=== PATIENT | male | born 1985 | race Caucasian/White ===

== ENCOUNTER 2020-02-22 11:27 | Inpatient (IN) | payer OTHER ==
[~2020-02-22] VITALS: Ht 182.9 cm; Wt 75.2 kg
[2020-02-22] MEDS ORDERED: SODIUM CHLORIDE 0.9% 1,000 ML IV ONE (13:06)
[2020-02-22] MEDS ORDERED: ONDANSETRON HCL 4 MG/2 ML VIAL IVP ONE (13:15)
[2020-02-22 13:28] LABS: ANION GAP 6 mmol/L (8-16); CALCIUM, TOTAL 9.4 mg/dL (8.8-10.5); CARBON DIOXIDE 29 mmol/L (22-29); CHLORIDE 102 mmol/L (98-107); CREATININE 0.82 mg/dL (0.60-1.30); GLOMERULAR FILTR. RATE CALC > 60 mL/min (>60); GLUCOSE,RANDOM 102 mg/dL (70-110); POTASSIUM 3.8 mmol/L (3.5-5.1); SODIUM SERUM 137 mmol/L (136-145); UREA NITROGEN, BLOOD 12 mg/dL (7-18)
[2020-02-22 13:32] LABS: BASOPHILS % (AUTO) 0.3 % (0.0-2.0); EOSINOPHILS % (AUTO) 0.2 % (1.0-6.0); HEMATOCRIT 42.7 % (41-53); HEMOGLOBIN 14.5 g/dL (13.5-17.5); LYMPHOCYTES # (AUTO) 1.4 K/uL (1.0-4.8); LYMPHOCYTES % (AUTO) 17.9 % (22.0-44.0); MEAN CORPUSCULAR HEMOGLOBIN 27.7 pg (26.0-34.0); MEAN CORPUSCULAR HGB CONC 34.1 G/dL (31.0-37.0); MEAN CORPUSCULAR VOLUME 81 fL (80-100); MONOCYTES # (AUTO) 0.5 K/uL (0.1-1.0); MONOCYTES % (AUTO) 6.1 % (2.0-9.0); NEUTROPHILS # (AUTO) 5.9 K/uL (1.8-7.7); NEUTROPHILS % (AUTO) 75.5 % (40.0-70.0); PLATELET COUNT (AUTO) 199 K/uL (150-450); RED BLOOD CELL COUNT(AUTO) 5.25 MIL/uL (4.50-5.90); RED CELL DISTRIBUTION WIDTH 13.4 % (11.5-14.5)
[2020-02-22 13:34] LABS: ALANINE AMINOTRANSFERASE 22 U/L (12-78); ALBUMIN 3.8 g/dL (3.4-5.0); ALKALINE PHOSPHATASE 60 U/L (46-116); ASPARTATE AMINOTRANSFERASE 19 U/L (15-37); BILIRUBIN,TOTAL 0.9 mg/dL (0.1-1.0); TOTAL PROTEIN, SERUM 6.9 g/dL (6.4-8.2)
[2020-02-22] MEDS ORDERED: 0.9% SODIUM CHLORIDE 10 ML SYRINGE IVP PRN (14:30)
[2020-02-22] MEDS ORDERED: ONDANSETRON HCL 4 MG/2 ML VIAL IVP PRN (14:30)
[2020-02-22] MEDS ORDERED: ACETAMINOPHEN 325 MG TABLET PO PRN (14:30)
[2020-02-22] MEDS ORDERED: ACETAMINOPHEN 500 MG TABLET ONE (15:00)
[2020-02-22] MEDS ORDERED: ACETAMINOPHEN 500 MG TABLET PO ONE (15:00)
[2020-02-22 15:59] LABS: COVID AG,FIA SOURCE NASOPHARYNGEAL
[2020-02-22] MEDS ORDERED: HydrOXYzine PAMOATE 50 MG CAPSULE PO PRN ×2 (16:15)
[2020-02-22] MEDS ORDERED: IBUPROFEN 600 MG TABLET PO PRN ×2 (16:15)
[2020-02-22] MEDS ORDERED: BACLOFEN 10 MG TABLET PO PRN (16:15)
[2020-02-22] MEDS ORDERED: LOPERAMIDE HCL 2 MG/15 ML SUSPENSION UDCUP PO PRN (16:15)
[2020-02-22] MEDS ORDERED: CloNIDine HCL 0.1 MG TABLET PO PRN (16:15)
[2020-02-22] MEDS ORDERED: MAG HYDROX/AL HYDROX/SIMETH ES 30 ML SUSPENSION UDCUP PO PRN ×2 (16:15)
[2020-02-22] MEDS ORDERED: DICYCLOMINE HCL 10 MG CAPSULE PO PRN (16:15)
[2020-02-22] MEDS ORDERED: SODIUM CHLORIDE 0.45% 1,000 ML IV ONE (17:07)
[2020-02-22] MEDS ORDERED: CloNIDine HCL 0.1 MG TABLET ONE (17:08)
[2020-02-22] MEDS: CloNIDine HCL 0.1 MG TABLET PO SCH ×2 (17:18→21:44)
[2020-02-22] MEDS: SODIUM CHLORIDE 0.45% 1,000 ML IV SCH (17:19)
[2020-02-22 18:31] VITALS: BP 130/73
[2020-02-22 20:58] VITALS: BP 129/62
[2020-02-22] MEDS: PROMETHAZINE HCL 25 MG TABLET PO PRN (22:15)
[2020-02-23] MEDS: PROMETHAZINE HCL 25 MG TABLET PO PRN ×2 (04:20→17:22)
[2020-02-23 04:44] VITALS: BP 121/65
[2020-02-23] MEDS: CloNIDine HCL 0.1 MG TABLET PO SCH ×4 (05:31→20:38)
[2020-02-23] MEDS: LORazepam 1 MG TABLET PO PRN ×2 (07:39→17:24)
[2020-02-23 08:09] VITALS: BP 118/68
[2020-02-23] MEDS: ACETAMINOPHEN 325 MG TABLET PO PRN ×2 (08:39→20:51)
[2020-02-23] MEDS: SODIUM CHLORIDE 0.45% 1,000 ML IV SCH ×2 (08:39→21:01)
[2020-02-23] MEDS ORDERED: PYRIDOSTIGMINE BROMIDE 60 MG TABLET PO ONE (11:00)
[2020-02-23] MEDS: ONDANSETRON HCL 4 MG/2 ML VIAL IVP PRN ×3 (11:01→20:51)
[2020-02-23 14:30] VITALS: BP 110/67
[2020-02-23 16:41] VITALS: BP 116/79
[2020-02-23] MEDS ORDERED: PYRIDOSTIGMINE BROMIDE 60 MG TABLET PO SCH (17:30)
[2020-02-23] MEDS: PYRIDOSTIGMINE BROMIDE 60 MG TABLET PO SCH (17:35)
[2020-02-23 20:16] VITALS: BP 116/75
[2020-02-23] MEDS: TraZODone HCL 50 MG TABLET PO PRN (21:01)
[2020-02-23] MEDS ORDERED: ALBUTEROL SULFATE 2.5 MG/0.5 ML NEB SOLUTION NEB PRN (22:45)
[2020-02-23] MEDS ORDERED: ACETAMINOPHEN 325 MG TABLET PO PRN (22:45)
[2020-02-23] MEDS ORDERED: IPRATROPIUM BROMIDE 0.5 MG/2.5 ML NEB SOLUTION NEB PRN (22:45)
[2020-02-23] MEDS ORDERED: ZOLPIDEM TARTRATE 5 MG TABLET PO PRN (22:45)
[2020-02-24] VITALS: BP 118/73
[2020-02-24] MEDS: PYRIDOSTIGMINE BROMIDE 60 MG TABLET PO SCH ×5 (00:14→23:39)
[2020-02-24] MEDS: HEPARIN SODIUM,PORCINE 5,000 UNITS/ML VIAL SQ SCH ×4 (00:14→23:38)
[2020-02-24] MEDS: PROMETHAZINE HCL 25 MG TABLET PO PRN (00:46)
[2020-02-24 04:00] VITALS: BP 112/68
[2020-02-24 05:05] LABS: APPEARANCE,URINE CLEAR (CLEAR); GLUCOSE, URINE (UA) NEGATIVE (NEGATIVE); KETONES,URINE >=80 mg/dL (NEGATIVE); LEUKOCYTE ESTERASE ,URINE SMALL (NEGATIVE); NITRATE,URINE NEGATIVE (NEGATIVE); OCCULT BLOOD,URINE TRACE (NEGATIVE); PROTEIN,URINE POS 1+ (NEGATIVE); UROBILINOGEN,URINE 0.2 mg/dL (<=1.0)
[2020-02-24 05:10] LABS: AMPHET/METH SCREEN,URINE POSITIVE (NEGATIVE); BARBITURATE SCREEN, URINE NEGATIVE (NEGATIVE); BENZODIAZEPINES SCREEN,URINE NEGATIVE (NEGATIVE); CANNABINOID SCREEN,URINE NEGATIVE (NEGATIVE); COCAINE SCREEN,URINE NEGATIVE (NEGATIVE); METHADONE SCREEN, URINE NEGATIVE (NEGATIVE); OPIATE SCREEN,URINE POSITIVE (NEGATIVE)
[2020-02-24 05:24] LABS: BILIRUBIN,URINE PRELIM. POSITIVE (NEGATIVE); PHENCYCLIDINE SCREEN,URINE NEGATIVE (NEGATIVE)
[2020-02-24 05:27] LABS: BACTERIA,URINE Moderate /HPF (None Seen); RBC,URINE 0-2 /HPF (0-2)
[2020-02-24 05:28] LABS: SQUAMOUS EPITHELIAL CELL,UR Few /LPF (None Seen)
[2020-02-24] MEDS: CloNIDine HCL 0.1 MG TABLET PO SCH ×4 (06:10→20:16)
[2020-02-24] MEDS: ONDANSETRON HCL 4 MG/2 ML VIAL IVP PRN ×4 (06:10→22:12)
[2020-02-24 08:57] LABS: HEMATOCRIT 49.1 % (41-53); HEMOGLOBIN 17.3 g/dL (13.5-17.5); MEAN CORPUSCULAR HEMOGLOBIN 28.1 pg (26.0-34.0); MEAN CORPUSCULAR HGB CONC 35.1 G/dL (31.0-37.0); MEAN CORPUSCULAR VOLUME 80 fL (80-100); NEUTROPHILS % (AUTO) 72.6 % (40.0-70.0); PLATELET COUNT (AUTO) 287 K/uL (150-450); RED BLOOD CELL COUNT(AUTO) 6.13 MIL/uL (4.50-5.90); RED CELL DISTRIBUTION WIDTH 13.8 % (11.5-14.5)
[2020-02-24 08:58] LABS: BASOPHILS % (AUTO) 0.3 % (0.0-2.0); EOSINOPHILS % (AUTO) 0 % (1.0-6.0); LYMPHOCYTES # (AUTO) 2.2 K/uL (1.0-4.8); LYMPHOCYTES % (AUTO) 18.2 % (22.0-44.0); MONOCYTES # (AUTO) 1.1 K/uL (0.1-1.0); MONOCYTES % (AUTO) 8.9 % (2.0-9.0); NEUTROPHILS # (AUTO) 8.8 K/uL (1.8-7.7)
[2020-02-24 09:00] VITALS: BP 116/65
[2020-02-24 09:16] LABS: ALANINE AMINOTRANSFERASE 22 U/L (12-78); ALBUMIN 4.4 g/dL (3.4-5.0); ALKALINE PHOSPHATASE 72 U/L (46-116); ANION GAP 8 mmol/L (8-16); ASPARTATE AMINOTRANSFERASE 17 U/L (15-37); BILIRUBIN,TOTAL 1.3 mg/dL (0.1-1.0); CALCIUM, TOTAL 10.1 mg/dL (8.8-10.5); CARBON DIOXIDE 40 mmol/L (22-29); CHLORIDE 95 mmol/L (98-107); CREATININE 1.24 mg/dL (0.60-1.30); GLOMERULAR FILTR. RATE CALC > 60 mL/min (>60); GLUCOSE,RANDOM 133 mg/dL (70-110); SODIUM SERUM 143 mmol/L (136-145); TOTAL PROTEIN, SERUM 8.2 g/dL (6.4-8.2); UREA NITROGEN, BLOOD 32 mg/dL (7-18)
[2020-02-24 09:22] LABS: POTASSIUM 2.3 mmol/L (3.5-5.1)
[2020-02-24] MEDS ORDERED: POTASSIUM CHLORIDE 20 MEQ ER TABLET PO ONE ×2 (09:45→13:45)
[2020-02-24] MEDS ORDERED: SODIUM CHLORIDE 0.9% 500 ML IV ONE (09:53)
[2020-02-24] MEDS: POTASSIUM CHL 10 MEQ/WATER 50 ML IV SCH ×4 (10:04→12:45)
[2020-02-24] MEDS: LORazepam 1 MG TABLET PO PRN (11:12)
[2020-02-24] MEDS: SODIUM CHLORIDE 0.45% 1,000 ML IV SCH (13:22)
[2020-02-24] MEDS ORDERED: POTASSIUM CHL 10 MEQ/WATER 50 ML IV PRN (14:30)
[2020-02-24] MEDS: POTASSIUM CHLORIDE 40 MEQ in SODIUM CHLORIDE 0.45% 1,000 ML IV SCH (14:35)
[2020-02-24 17:00] VITALS: BP 113/77
[2020-02-24 20:14] VITALS: BP 103/67
[2020-02-24] MEDS: POTASSIUM CHLORIDE 20 MEQ ER TABLET PO PRN (22:12)
[2020-02-24 23:31] VITALS: BP 105/71
[2020-02-25] MEDS: POTASSIUM CHLORIDE 40 MEQ in SODIUM CHLORIDE 0.45% 1,000 ML IV SCH ×2 (03:44→17:11)
[2020-02-25] MEDS: CloNIDine HCL 0.1 MG TABLET PO SCH ×5 (05:12→22:05)
[2020-02-25] MEDS: PYRIDOSTIGMINE BROMIDE 60 MG TABLET PO SCH ×5 (05:52→23:47)
[2020-02-25 05:57] VITALS: BP 101/65
[2020-02-25 07:07] LABS: BASOPHILS % (AUTO) 0.4 % (0.0-2.0); EOSINOPHILS % (AUTO) 0.4 % (1.0-6.0); HEMATOCRIT 48.5 % (41-53); LYMPHOCYTES # (AUTO) 2.8 K/uL (1.0-4.8); LYMPHOCYTES % (AUTO) 25.3 % (22.0-44.0); MEAN CORPUSCULAR HEMOGLOBIN 28.5 pg (26.0-34.0); MEAN CORPUSCULAR VOLUME 82 fL (80-100); MONOCYTES # (AUTO) 1.2 K/uL (0.1-1.0); MONOCYTES % (AUTO) 11.1 % (2.0-9.0); NEUTROPHILS # (AUTO) 6.9 K/uL (1.8-7.7); NEUTROPHILS % (AUTO) 62.8 % (40.0-70.0); PLATELET COUNT (AUTO) 260 K/uL (150-450); RED BLOOD CELL COUNT(AUTO) 5.95 MIL/uL (4.50-5.90); RED CELL DISTRIBUTION WIDTH 13.4 % (11.5-14.5)
[2020-02-25 07:29] LABS: ALANINE AMINOTRANSFERASE 16 U/L (12-78); ALBUMIN 3.9 g/dL (3.4-5.0); ALKALINE PHOSPHATASE 59 U/L (46-116); ANION GAP 6 mmol/L (8-16); ASPARTATE AMINOTRANSFERASE 13 U/L (15-37); BILIRUBIN,TOTAL 1.2 mg/dL (0.1-1.0); CALCIUM, TOTAL 9.4 mg/dL (8.8-10.5); CARBON DIOXIDE 37 mmol/L (22-29); CHLORIDE 96 mmol/L (98-107); CREATININE 1.12 mg/dL (0.60-1.30); GLOMERULAR FILTR. RATE CALC > 60 mL/min (>60); GLUCOSE,RANDOM 120 mg/dL (70-110); POTASSIUM 3.3 mmol/L (3.5-5.1); SODIUM SERUM 139 mmol/L (136-145); TOTAL PROTEIN, SERUM 7.3 g/dL (6.4-8.2); UREA NITROGEN, BLOOD 20 mg/dL (7-18)
[2020-02-25] MEDS: HEPARIN SODIUM,PORCINE 5,000 UNITS/ML VIAL SQ SCH ×3 (07:52→23:47)
[2020-02-25 08:15] VITALS: BP 105/66
[2020-02-25] MEDS: MULTIVITAMINS WITH MINERALS, THERAPEUTIC TABLET PO SCH (09:45)
[2020-02-25] MEDS: POTASSIUM CHLORIDE 20 MEQ ER TABLET PO PRN (09:46)
[2020-02-25 11:31] VITALS: BP 98/63
[2020-02-25] MEDS: PROMETHAZINE HCL 25 MG TABLET PO PRN (13:32)
[2020-02-25] MEDS: ONDANSETRON HCL 4 MG/2 ML VIAL IVP PRN ×2 (14:38→19:59)
[2020-02-25] MEDS: LORazepam 1 MG TABLET PO PRN (16:50)
[2020-02-25 17:09] VITALS: BP 105/67
[2020-02-25 19:55] VITALS: BP 135/50
[2020-02-26 04:10] VITALS: BP 98/58
[2020-02-26] MEDS: CloNIDine HCL 0.1 MG TABLET PO SCH ×4 (05:27→22:00)
[2020-02-26] MEDS: PYRIDOSTIGMINE BROMIDE 60 MG TABLET PO SCH ×4 (06:19→23:52)
[2020-02-26] MEDS: POTASSIUM CHLORIDE 40 MEQ in SODIUM CHLORIDE 0.45% 1,000 ML IV SCH ×2 (06:19→20:09)
[2020-02-26] MEDS: LORazepam 1 MG TABLET PO PRN ×2 (06:28→16:34)
[2020-02-26 07:06] LABS: BASOPHILS % (AUTO) 0.3 % (0.0-2.0); EOSINOPHILS % (AUTO) 0.4 % (1.0-6.0); HEMATOCRIT 44.4 % (41-53); HEMOGLOBIN 15.9 g/dL (13.5-17.5); LYMPHOCYTES # (AUTO) 2.5 K/uL (1.0-4.8); LYMPHOCYTES % (AUTO) 29.4 % (22.0-44.0); MEAN CORPUSCULAR HEMOGLOBIN 28.8 pg (26.0-34.0); MEAN CORPUSCULAR HGB CONC 35.8 G/dL (31.0-37.0); MEAN CORPUSCULAR VOLUME 81 fL (80-100); MONOCYTES # (AUTO) 0.9 K/uL (0.1-1.0); MONOCYTES % (AUTO) 10.5 % (2.0-9.0); NEUTROPHILS # (AUTO) 5.1 K/uL (1.8-7.7); NEUTROPHILS % (AUTO) 59.4 % (40.0-70.0); PLATELET COUNT (AUTO) 223 K/uL (150-450); RED BLOOD CELL COUNT(AUTO) 5.52 MIL/uL (4.50-5.90); RED CELL DISTRIBUTION WIDTH 13.4 % (11.5-14.5)
[2020-02-26 07:13] LABS: ALANINE AMINOTRANSFERASE 18 U/L (12-78); ALBUMIN 3.8 g/dL (3.4-5.0); ALKALINE PHOSPHATASE 54 U/L (46-116); ANION GAP 5 mmol/L (8-16); ASPARTATE AMINOTRANSFERASE 10 U/L (15-37); BILIRUBIN,TOTAL 1.2 mg/dL (0.1-1.0); CALCIUM, TOTAL 9.5 mg/dL (8.8-10.5); CARBON DIOXIDE 34 mmol/L (22-29); CHLORIDE 97 mmol/L (98-107); CREATININE 0.99 mg/dL (0.60-1.30); GLOMERULAR FILTR. RATE CALC > 60 mL/min (>60); GLUCOSE,RANDOM 107 mg/dL (70-110); POTASSIUM 3.3 mmol/L (3.5-5.1); SODIUM SERUM 136 mmol/L (136-145); TOTAL PROTEIN, SERUM 6.8 g/dL (6.4-8.2); UREA NITROGEN, BLOOD 17 mg/dL (7-18)
[2020-02-26 08:30] VITALS: BP 106/58
[2020-02-26] MEDS: MULTIVITAMINS WITH MINERALS, THERAPEUTIC TABLET PO SCH ×2 (09:15→10:21)
[2020-02-26] MEDS: POTASSIUM CHLORIDE 20 MEQ ER TABLET PO PRN ×3 (09:15→17:42)
[2020-02-26] MEDS: HEPARIN SODIUM,PORCINE 5,000 UNITS/ML VIAL SQ SCH ×3 (09:15→23:51)
[2020-02-26] MEDS: ONDANSETRON HCL 4 MG/2 ML VIAL IVP PRN ×3 (09:25→17:42)
[2020-02-26] MEDS: FAMOTIDINE 20 MG TABLET PO SCH ×2 (10:15→19:57)
[2020-02-26 12:53] VITALS: BP 96/67
[2020-02-26 16:29] VITALS: BP 110/67
[2020-02-26 19:30] VITALS: BP 99/62
[2020-02-27 04:48] VITALS: BP 106/64
[2020-02-27] MEDS: CloNIDine HCL 0.1 MG TABLET PO SCH (05:37)
[2020-02-27] MEDS: PYRIDOSTIGMINE BROMIDE 60 MG TABLET PO SCH ×4 (05:37→23:50)
[2020-02-27 07:35] LABS: ALANINE AMINOTRANSFERASE 35 U/L (12-78); ALBUMIN 3.8 g/dL (3.4-5.0); ALKALINE PHOSPHATASE 54 U/L (46-116); ANION GAP 4 mmol/L (8-16); ASPARTATE AMINOTRANSFERASE 23 U/L (15-37); BASOPHILS % (AUTO) 0.4 % (0.0-2.0); CALCIUM, TOTAL 9.3 mg/dL (8.8-10.5); CARBON DIOXIDE 33 mmol/L (22-29); CHLORIDE 98 mmol/L (98-107); CREATININE 1.07 mg/dL (0.60-1.30); EOSINOPHILS % (AUTO) 0.7 % (1.0-6.0); GLOMERULAR FILTR. RATE CALC > 60 mL/min (>60); GLUCOSE,RANDOM 122 mg/dL (70-110); HEMOGLOBIN 15.4 g/dL (13.5-17.5); LYMPHOCYTES # (AUTO) 2.2 K/uL (1.0-4.8); LYMPHOCYTES % (AUTO) 28.4 % (22.0-44.0); MEAN CORPUSCULAR HEMOGLOBIN 28.2 pg (26.0-34.0); MEAN CORPUSCULAR VOLUME 81 fL (80-100); MONOCYTES # (AUTO) 0.7 K/uL (0.1-1.0); MONOCYTES % (AUTO) 8.7 % (2.0-9.0); NEUTROPHILS # (AUTO) 4.8 K/uL (1.8-7.7); NEUTROPHILS % (AUTO) 61.8 % (40.0-70.0); PLATELET COUNT (AUTO) 216 K/uL (150-450); POTASSIUM 3.3 mmol/L (3.5-5.1); RED BLOOD CELL COUNT(AUTO) 5.46 MIL/uL (4.50-5.90); RED CELL DISTRIBUTION WIDTH 13.4 % (11.5-14.5); SODIUM SERUM 135 mmol/L (136-145); TOTAL PROTEIN, SERUM 6.8 g/dL (6.4-8.2); UREA NITROGEN, BLOOD 19 mg/dL (7-18)
[2020-02-27 08:11] VITALS: BP 93/64
[2020-02-27] MEDS: MULTIVITAMINS WITH MINERALS, THERAPEUTIC TABLET PO SCH (09:00)
[2020-02-27] MEDS: LORazepam 1 MG TABLET PO PRN (09:00)
[2020-02-27] MEDS: HEPARIN SODIUM,PORCINE 5,000 UNITS/ML VIAL SQ SCH ×3 (09:00→23:50)
[2020-02-27] MEDS: FAMOTIDINE 20 MG TABLET PO SCH ×2 (09:00→19:54)
[2020-02-27] MEDS: POTASSIUM CHLORIDE 20 MEQ ER TABLET PO PRN (09:01)
[2020-02-27] MEDS: ONDANSETRON HCL 4 MG/2 ML VIAL IVP PRN ×2 (09:10→15:13)
[2020-02-27] MEDS ORDERED: PYRI60TA PO (12:15)
[2020-02-27 15:13] VITALS: BP 110/68
[2020-02-27] MEDS: TraZODone HCL 50 MG TABLET PO PRN (19:59)
[2020-02-27 20:02] VITALS: BP 122/63
[2020-02-28] MEDS: PYRIDOSTIGMINE BROMIDE 60 MG TABLET PO SCH (05:25)
[2020-02-28 05:31] VITALS: BP 112/69
[2020-02-28 06:19] LABS: BASOPHILS % (AUTO) 0.7 % (0.0-2.0); EOSINOPHILS % (AUTO) 1.3 % (1.0-6.0); HEMATOCRIT 42.4 % (41-53); HEMOGLOBIN 15.1 g/dL (13.5-17.5); LYMPHOCYTES # (AUTO) 2.5 K/uL (1.0-4.8); LYMPHOCYTES % (AUTO) 32.7 % (22.0-44.0); MEAN CORPUSCULAR HEMOGLOBIN 28.6 pg (26.0-34.0); MEAN CORPUSCULAR HGB CONC 35.6 G/dL (31.0-37.0); MEAN CORPUSCULAR VOLUME 80 fL (80-100); MONOCYTES # (AUTO) 0.6 K/uL (0.1-1.0); NEUTROPHILS # (AUTO) 4.3 K/uL (1.8-7.7); NEUTROPHILS % (AUTO) 57.3 % (40.0-70.0); PLATELET COUNT (AUTO) 215 K/uL (150-450); RED BLOOD CELL COUNT(AUTO) 5.29 MIL/uL (4.50-5.90); RED CELL DISTRIBUTION WIDTH 13.4 % (11.5-14.5)
[2020-02-28 06:44] LABS: ALANINE AMINOTRANSFERASE 57 U/L (12-78); ALBUMIN 3.7 g/dL (3.4-5.0); ALKALINE PHOSPHATASE 57 U/L (46-116); ANION GAP 5 mmol/L (8-16); ASPARTATE AMINOTRANSFERASE 32 U/L (15-37); BILIRUBIN,TOTAL 0.9 mg/dL (0.1-1.0); CALCIUM, TOTAL 9.1 mg/dL (8.8-10.5); CARBON DIOXIDE 30 mmol/L (22-29); CHLORIDE 101 mmol/L (98-107); CREATININE 1.01 mg/dL (0.60-1.30); GLOMERULAR FILTR. RATE CALC > 60 mL/min (>60); GLUCOSE,RANDOM 96 mg/dL (70-110); POTASSIUM 4.1 mmol/L (3.5-5.1); SODIUM SERUM 136 mmol/L (136-145); TOTAL PROTEIN, SERUM 6.7 g/dL (6.4-8.2); UREA NITROGEN, BLOOD 14 mg/dL (7-18)
[2020-02-28] MEDS ORDERED: FAMO20 PO (07:56)
[2020-02-28] MEDS ORDERED: MULT1CAP32 PO (07:57)
[2020-02-28] MEDS ORDERED: HEPA500018 SQ (07:57)
[2020-02-28] MEDS ORDERED: PYRI60TA PO (07:57)
[2020-02-28] MEDS ORDERED: ALBU8HFA IH (07:58)
[2020-02-28] MEDS ORDERED: ACET-2865 PO (07:58)
[2020-02-28] MEDS ORDERED: TRAZ-252 PO (07:59)
[2020-02-28] MEDS: HEPARIN SODIUM,PORCINE 5,000 UNITS/ML VIAL SQ SCH (08:00)
[2020-02-28 08:30] VITALS: BP 116/70
[2020-02-28] MEDS: FAMOTIDINE 20 MG TABLET PO SCH (08:50)
[2020-02-28] MEDS: MULTIVITAMINS WITH MINERALS, THERAPEUTIC TABLET PO SCH (08:50)
== END 2020-02-28 11:18 | DRG 896 ==
LOC: EMS 11:31 → 6S 15:11 → UNDOADMIN 17:57 → 6S 18:00
PROVIDERS: ADMIT Hospitalist; ATTEND Hospitalist
DX: F11.10 Opioid abuse, uncomplicated (principal); E43 Unspecified severe protein-calorie malnutrition; F15.10 Other stimulant abuse, uncomplicated; G70.00 Myasthenia gravis without (acute) exacerbation; M54.9 Dorsalgia, unspecified; G89.29 Other chronic pain; E87.6 Hypokalemia; Z20.828 Contact with and (suspected) exposure to other viral communicable diseases; Z68.22 Body mass index [BMI] 22.0-22.9, adult
CPT/HCPCS: 80307; 83735; 84132; 87086; 87426; 97116; 97161; J1644; J2405; J3480; J7030; J7040